=== PATIENT | male | born 1935 | race Caucasian/White ===

== ENCOUNTER 2017-01-12 19:31 | Emergency (ER) | payer OTHER ==
[~2017-01-12] VITALS: Ht 188 cm; Wt 90.0 kg
[~2017-01-12 19:31] MED LIST: ADVA100A INH; ASPI81 PO; COMBAER INH; LEVO100T75 PO; ROBA500T PO; SIMV10TA PO; SPIRCAP INH
[2017-01-12 19:35] VITALS: BP 139/67; PULSE 83; RESP 16; TEMP 97.6; O2SAT 95
--- NOTE | 2017-01-12 20:58 | PD ---
HPI Chief Complaint: Laceration/Skin Injury Time Seen by Provider: 20:55 Travel History International Travel<30 days: No Contact w/Intl Traveler<30days: No Traveled to known affect area: No History of Present Illness HPI Patient comes in for evaluation of a laceration of his left upper extremity that occurred shortly prior to arrival. Patient states he was grinding steel when the blade exploded causing a laceration. Patient denies doing anything for this prior to arrival other than wrapping reports his tetanus shot is up-to- date. Denies any numbness or tingling, decreased range of motion, or being on any blood thinners. PFSH Past Medical History Hx Anticoagulant Therapy: Yes (ASA) Arthritis: Yes Heart Rhythm Problems: Yes (CHILDHOOD PALPITATIONS) High Cholesterol: Yes COPD: Yes Diminished Hearing: Yes Deep Vein Thrombosis: Yes (LOWER RIGHT LEG S/P FALL 1952) Hepatitis: Yes (HEP A) Immune Disorder: Yes (RHEUMATOID ARTHRITIS 3WKS 1952) Respiratory: Yes (COPD) Integumentary: Yes (SKIN ULCERATION TO LOWER RIGHT LEG, S/P DVT) Pneumonia: Yes (1954, 2004) Thyroid Disease: Yes (HYPOTHYROIDISM) Past Surgical History Eye Surgery: Yes (LEFT CATARACT 2010) Genitourinary Surgery: Yes (VASECTOMY 1970) Tonsillectomy: Yes Other Surgery: Yes (LEFT BREAST LUMPECTOMY 1954, DEVIATED SEPTUM REPAIR) Social History Alcohol Use: Yes (OCCASIONALLY) Tobacco Use: No (QUIT JANUARY 06, 2005) Substance Use: No Allergies-Medications (Allergen,Severity, Reaction): Coded Allergies: Robaxin (Verified Allergy, Severe, 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 SKIN: Warm and dry. Small superficial laceration noted left distal arm just proximal to the elbow anterior aspect. There is no obvious foreign body noted. HEAD: Atraumatic. Normocephalic. EYES: Pupils equal and round. EOMI. No scleral icterus. No injection or drainage. ENT: No nasal bleeding or discharge. Mucous membranes pink and moist. NECK: Trachea midline. Supple. No nuclear rigidity. CARDIOVASCULAR: Radial pulses 2+, intact, and equal bilaterally. Capillary refill is 2 seconds. RESPIRATORY: No accessory muscle use. No respiratory distress. MUSCULOSKELETAL: No obvious deformities. No clubbing. No cyanosis. No edema. Full range of motion. Wrist: FROM and equal BL with passive flexion, extension, and pronation/supination. Capillary refill less than 2 seconds distal to injury and equal BL. FROM distal to injury and equal BL. Strength distal to injury equal BL. NV intact distal to injury. Flexion and extension of thumb equal BL. Equal strength and movement with abduction/adductions of BL fingers. Teletype Or [employer] Keyboard Operator strength equal BL. No tenderness to the anatomical snuffbox. NEUROLOGICAL: Awake and alert. No obvious cranial nerve deficits. Motor grossly within normal limits. Normal speech. PSYCHIATRIC: Appropriate mood and affect; insight and judgment normal. Data Data Last Documented VS Vital Signs Date Time Temp Pulse Resp B/P Pulse Ox O2 Delivery O2 Flow Rate FiO2 01/12/17 21:03 18 01/12/17 19:35 97.6 83 139/67 95 Room Air Orders Humerus (Min 2vws) (01/12/17 ) Lidocai-Epi 1%-1:100,000 Inj (Xylocaine- (01/12/17 21:00) MDM Medical Decision Making Medical Screen Exam Complete: Yes Emergency Medical Condition: Yes Differential Diagnosis Laceration, abrasion, retained foreign body, other Narrative Course The patient suffered laceration to the extremity. There was no evidence to suggest foreign bodies. Visual, tactile and radiographic exams were unremarkable without evidence of foreign body at this time. There was no evidence of neurovascular injury. The patient had a normal distal vascular exam , and had full normal motor and sensory exams. There was also no evidence or tendon injury, with normal distal full range of motions, flexion, extension, abduction, adduction and opponens. There was no evidence of local joint space involvement at this time. The patient was irrigated with copious sterile normal saline and primary repair was performed. Please see procedure note. The patient was given signs and symptom warnings for infection, such as increasing pain, redness, swelling, associated heat, pus or fever. The patient was warned of possible unseen foreign body and instructed to return immediately if signs or symptoms develop. The patient was given instructions for timely follow up and for removal. The patient agreed with plan of care. Patient in no obvious distress upon re-evaluation. All pertinent Radiology result(s) discussed with patient/family. Patient was asked if they wanted to speak to my attending, which the patient did not wish to do at this time. Any questions/concerns in reference to patient diagnosis/condition discussed and clarified prior to patient's discharge. Reinforced sheer importance of close follow up with patient's primary physician or primary care clinic. Instructed patient to return to ED immediately, if symptoms return/worsen. Pt showed understanding of above instructions. Further instructions and recommendations were detailed in discharge paperwork. Pt ambulated without difficulty out of ED at discharge. Procedures Procedure Narrative LACERATION REPAIR LOCATION: Left distal arm anterior aspect LENGTH: Approximately 3.5 cm NUMBER OF STITCHES/AMIE: 4 amie REPAIR: Verbal consent was obtained. The area of the laceration was cleaned and prepped. The laceration was infiltrated with lidocaine with epi. The wound was copiously irrigated and explored without evidence of foreign body, bony involvement, ligament injury, tendon injury, or neurovascular injury. The wound was closed using amie. This was a single layer repair. A sterile dressing was applied by nurse. The patient was advised to keep the affected area as clean and dry as possible using soap and water. There were no complications. Patient tolerated the procedure well. Diagnosis Primary Impression: Laceration Patient Instructions: General Instructions, Laceration (ED), Staple Care (ED) Additional Instructions: Follow-up with your primary care physician or return here in 10-14 days for staple removal. Keep wound dry and clean as possible using soap and water. Return to the emergency department if symptoms get worse. Disposition: 01 DISCHARGE HOME Condition: Stable Paul Bess Jan 12, 2017 20:58
[2017-01-12] MEDS ORDERED: LIDOCAINE 1%/EPINEPHrine 1:100,000 SOLN 20 ML VIAL INFIL ONE (21:00)
[2017-01-12] MEDS ORDERED: SIMV10TA PO (21:02)
[2017-01-12] MEDS ORDERED: IPRAAER INH (21:02)
[2017-01-12] MEDS ORDERED: ASPI81CH CHEW (21:02)
[2017-01-12] MEDS ORDERED: LEVO100T5 PO (21:02)
--- NOTE | 2017-01-12 21:44 | RADRPT ---
EXAM DATE/TIME: 01/12/2017 21:32 [facility] COMPARISON: No previous studies available for comparison. INDICATIONS : Mid left arm puncture wound from a saw blade tonight. MEDICAL HISTORY : None. SURGICAL HISTORY : None. ENCOUNTER: Initial ACUITY: 1 day PAIN SCORE: 3/10 LOCATION: Left mid humerus. FINDINGS: Two view examination of the left humerus demonstrates no evidence of fracture or dislocation. Bony m ineralization is normal. The soft tissue structures are intact. CONCLUSION: No acute fracture. Tien Rojas MD on January 12, 2017 at 21:42 Board Certified Radiologist. This report was verified electronically.
== END 2017-01-12 22:19 | disposition home or self-care (01) ==
LOC: NEPB 19:31
DX: S51.812A Laceration without foreign body of left forearm, initial encounter (principal); E78.00 Pure hypercholesterolemia, unspecified; J44.9 Chronic obstructive pulmonary disease, unspecified; Z86.718 Personal history of other venous thrombosis and embolism; E03.9 Hypothyroidism, unspecified; W31.1XXA Contact with metalworking machines, initial encounter; Y93.89 Activity, other specified; Y92.9 Unspecified place or not applicable
CPT/HCPCS: 12002; 73060